=== PATIENT | male | born 1945 ===

== ENCOUNTER 2017-12-18 10:05 | Inpatient (IN) | payer MEDICARE ==
[2017-12-18] MEDS ORDERED: Magnesium Hydroxide LIQ* 30 ML UDC PO PRN (12:48)
[2017-12-18] MEDS ORDERED: Senna TAB PO PRN (12:48)
[2017-12-18] MEDS ORDERED: Acetaminophen TAB* 325 MG PO PRN (12:48)
[2017-12-18] MEDS: Atorvastatin* 80 MG TAB PO SCH (16:26)
[2017-12-18] MEDS: oxyCODONE/Acetamin 5/325 MG* TAB PO PRN ×2 (16:39→21:41)
[2017-12-18] MEDS ORDERED: traMADol TAB* 50 MG PO PRN (16:51)
[2017-12-18] MEDS: Enoxaparin(*) 30 MG/0.3 ML SYR SUBCUT SCH (20:13)
[2017-12-18] MEDS: Docusate CAP* 100 MG PO SCH (20:14)
--- NOTE | 2017-12-18 21:23 | HP ---
HISTORY AND PHYSICAL: DATE OF ADMISSION: 12/18/17 REASON FOR ADMISSION: Stroke with left hemiparesis; left total hip replacement. HISTORY OF PRESENT ILLNESS: Abebe Dow is a 72-year-old male. He has a medical history significant for having had TIAs in the past. The patient had worsening chronic left hip pain. He had seen Dr. Jenaro Lane at [place]. X- rays were taken showing end-stage osteoarthritis. Conservative measures including intraarticular injections and physical therapy failed to provide any significant relief. It was decided the best big course of action would be for the patient to have a left total hip replacement. The patient normally takes a baby aspirin a day, but this was held for 2 weeks prior to surgery. The patient was admitted to [facility] on 12/11/17. He underwent a total hip replacement that day. Apparently, the patient started to have stroke- like symptoms on 12/08/17. The patient did not report this to anybody because he was worried that his surgery might get canceled. The patient was having difficulty gripping a pen with his left hand and he had weakness in his left arm and left leg. The patient reported to nursing staff that he was having more difficulty moving his left leg and left hip after the surgery. A Neurology consult was ordered on 12/12/17. The patient had an MRI of his brain , which showed acute ischemic changes throughout the right hemisphere including the right parietal cortex in the region of the hand representation. There were other scattered ischemic foci within the subcortical white matter. MR angiogram revealed focal right internal carotid artery stenosis. The patient's baby aspirin by that time had been restarted. He was also on Lovenox for DVT prophylaxis. Vascular Surgery was called to see the patient. They said they would follow up in several weeks to determine if he was a candidate for any vascular procedures. They recommended continuing aspirin in the meantime. The patient was seen by Physical Therapy and Occupational Therapy at [facility]. He was felt to have needs in both disciplines. He is now being admitted for inpatient rehab so he might return to independent living. PAST MEDICAL HISTORY: Significant for the aforementioned TIAs in the past. He also has a history of polymyalgia rheumatica. He was given steroids for that and had significant weight gain. CURRENT MEDICATIONS: Include: 1. Aspirin 81 mg daily. 2. He is on Lipitor 80 mg daily. 3. He is on Lovenox. 4. Percocet for pain control. ALLERGIES: The patient has no known allergies. SOCIAL HISTORY: He is a nonsmoker. He does drink once in a while. He lives with his and daughter in a trailer with 4 steps to enter. REVIEW OF SYSTEMS: The patient reports no current shortness of breath or chest pain. PHYSICAL EXAMINATION VITAL SIGNS: The patient's temperature is 97.1, blood pressure is 121/67, pulse is 87, respirations 20. HEENT: His extraocular movements appear to be intact. His face is symmetric. NECK: Supple with no lymphadenopathy. LUNGS: Sounded clear to auscultation bilaterally. HEART: Sounds are regular. S1, S2 are audible. ABDOMEN: Soft and nontender. EXTREMITIES: His left hip has a wound, which is clean and dry. Peripheral pulses were intact. NEUROLOGIC: He was awake, alert, oriented. He did seem to have weakness in his left hand as well as left wrist. He also had possible weakness in his left leg, difficult to tell with his recent total hip replacement. 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 PLAN: Integrate to him to comprehensive and therapeutic rehab program with the following goals. 1. Physical Therapy will work with the patient. They are going to work on functional transfer training, ambulation training with a walker. 2. Occupational Therapy will see the patient and work on his activities of daily living including toileting and toilet transfers. 3. Lovenox for DVT prophylaxis. 4. Aspirin and Lipitor for secondary stroke prevention. 5. SSRIs including Prozac as indicated. 6. Adequate analgesia. 7. His bowels will be regulated. 8. guest services will be closely involved to make sure that any service and equipment that the patient requires are in place prior to discharge. 9. Family training as appropriate. 10. Home with appropriate services. ESTIMATED LENGTH OF STAY: 10 to 12 days. [id number]/[facility] #: [id number] JOSELITO
[2017-12-19] MEDS: Enoxaparin(*) 30 MG/0.3 ML SYR SUBCUT SCH ×2 (07:31→19:59)
[2017-12-19] MEDS: oxyCODONE/Acetamin 5/325 MG* TAB PO PRN ×4 (07:31→23:57)
[2017-12-19] MEDS: Aspirin EC Low Dose* 81 MG TAB.EC PO SCH (07:31)
[2017-12-19] MEDS: Docusate CAP* 100 MG PO SCH ×2 (07:31→20:02)
--- NOTE | 2017-12-19 12:29 | PMRUTEAM ---
PMRU: Goals Current Status: Nursing: Current Status Skin Deviations [Left Hip] Incision Skin Deviation Description [ Dressing not to be removed till 12/21 Left Hip] Physical Therapy: Current Status Bed Mobility Assistance Supervision Transfer Moblility Assistance Supervision Transfer/Bed Mobility Rolling Walker Recommended Devices Transfer Mobility Comment Pt. is able to perform a transfer using a 2 w/w. Ambulation Assistance Supervision Ambulation Assistive Devices Rolling Walker Number of Feet Patient 150' Ambulated Ambulation Comment pt. presents an antalgic slow reciprocal type gait pattern. Stairs Assistance Supervision Stairs Recommended Devices Two Rails Number of Stairs Flight Occupational Therapy: Current Status Upper Body Dressing Supervision Lower Body Dressing Min Assist Bathing Min Assist Toileting Contact Guard Assist Toilet Transfer Contact Guard Assist Shower Transfer Contact Guard Assist Eating Ind with Adaptive Equip Rec Therapy: Current Status Summary of Assessment and RT assessment complete and pt. is aware of RT Clinical Impression services. Pt. identifies with leisure interests and was actively involved in them prior to admission. Pt. is open to continued leisure visits. Treatment Goals Pt. will engage in leisure activities while on the unit. Treatment Plan Provide RT services and encourage involvement. Social Work: Current Status Discharge Plan return home with home care svs and family support Potential for Family Training pt's is involved and supportive Anticipated Discharge Home Destination Discharge With VNS and family support Nutrition: Current Status Monitoring Pt newly admitted 12/18 post R CVA w/L sided weakness, L THR. No swallowing difficulties noted , tolerating regular textures. Heart healthy diet appropriate. Note fair intake (45-50%) and will follow to encourage improvement. No skin issues, + BM 12/18 and receiving appropriate bowel meds. Goals: Physical Therapy: Initial Goals Bed Mobility Assistance Independent Transfer Mobility Assistance Independent Transfer/Bed Mobility Rolling Walker Recommended Devices Ambulation Independent Ambulation Recommended Devices Rolling Walker Ambulation Distance 150' Stairs Assistance Independent Stair Recommended Devices Two Rails Number of Stairs 12 Home Exercise Program Independent Assistance Physical Therapy: Updated Goals Bed Mobility Assistance Independent Transfer Mobility Assistance Independent Transfer/Bed Mobility Rolling Walker Recommended Devices Ambulation Assistance Independent Ambulation Assistive Devices Rolling Walker Ambulation Distance (ft) 150 Stairs Assistance Independent Stairs Recommended Devices Two Rails Number of Stairs flight Home Exercise Program Independent Assistance Occupational Therapy: Initial Goals Goals to be Completed in (Days 5 days ) Upper Body Bathing Routine Modified Independent with Lower Body Bathing Routine Modified Independent with Upper Body Dressing Routine Independent Lower Body Dressing Routine Modified Independent with Toilet Hygeine and Clothing Modified Independent with Management Routine Toilet Transfer Routine Modified Independent with Step-In Shower Transfer Modified Independent with Routine Functional Transfers for ADL Modified Independent with Grooming Routine Independent Feeding Routine Independent Nutrition: Goals Intervention Goals 1. Adequate oral intake to support maintenance of lean body mass w/o contributing to undesirable weight gain. 2. Maintain bowel regularity w/o constipation/ diarrhea. Social Work: Goals Discharge Plan return home with home care svs and family support Potential for Family Training pt's is involved and supportive Anticipated Discharge Home Destination Discharge With VNS and family support Care Plan: Care Plan Mobility- Improve/Maintain Start: 12/18/17 14:50 Freq: DAILY Status: Active Target: Protocol: Activity Type Activity Date Activity User E-Sign Co-Sign Detail Recorded Client Recorded Date Recorded By Document 12/18/17 14:50 [id number] 12/18/17 14:51 [id number] 12/18/17 14:50 PMRU Outcome: Mobility Physical Therapy Evaluation and Yes Treatment Activity OOB with Assistance Yes WBAT Yes Device Yes Assistance Yes Patient to be seen 5x/wk for 60-120 min/ Therex day for: Mobility Training Gait Training Balance Other Therapy Comment L hip precautions Outcome/Goals Maintain/ Achieve Baseline Mobility Status Improve Mobility Status Demonstrates Proper Use of Assistive Devices Free from Complications of Immobility Bed Mobility Yes: Independent Transfers Yes: Modified independent with RW Gait x ft Yes: Modified independent 150 ' with RW Up/Down Stairs Yes: Independent 12 steps 2 railings With HEP Yes Goal Comment Recall 3/3 hip precautions independently Neurological- Improve/Maintain Start: 12/18/17 17:00 Freq: DAILY Status: Active Target: Protocol: Activity Type Activity Date Activity User E-Sign Co-Sign Detail Recorded Client Recorded Date Recorded By Document 12/18/17 23:50 [id number] 12/18/17 23:50 [id number] 12/18/17 23:50 PMRU Outcome: Neurological Weakness/Aphasia Weakness Weakness/Aphasia Comment general Outcome/Goals Maintain/ Achieve Baseline Neurological Status Improve Neurological Status Maintain/ Improve Strength/ROM Progression Toward Outcome/Goals Progressing Pain/Comfort- Improve/Maintain Start: 12/18/17 17:00 Freq: DAILY Status: Active Target: Protocol: Activity Type Activity Date Activity User E-Sign Co-Sign Detail Recorded Client Recorded Date Recorded By Document 12/18/17 23:50 [id number] 12/18/17 23:50 [id number] 12/18/17 23:50 PMRU Outcome: Pain/Comfort Outcome/Goals Demonstrates Knowledge and Use of Available Comfort Measures Maintain Comfort Level Allowing Patient to Fully Participate in Rehab Progression Toward Outcome/Goals Progressing Outcome/Goals Met Comment pt sleeping Safety- Improve/Maintain Start: 12/18/17 17:00 Freq: DAILY Status: Active Target: Protocol: Activity Type Activity Date Activity User E-Sign Co-Sign Detail Recorded Client Recorded Date Recorded By Document 12/18/17 23:50 [id number] 12/18/17 23:50 [id number] 12/18/17 23:50 PMRU Outcome: Safety Outcome/Goals Remain Free of Injury or Harm Outcome/Goals Met Comment PA in place Medicine Note: Length of Stay: 3 days Anticipated Discharge Destination: Home Tentative Discharge Date: 12/22/17 Discharged to: Home
[2017-12-19] MEDS: Atorvastatin* 80 MG TAB PO SCH (16:58)
--- NOTE | 2017-12-19 18:05 | PN ---
Progress Note Date of Service: 12/19/17 Note: PARAS López RAMON was visited. Therapy notes read and reviewed. Jose was discussed in interdisciplinary team rounds. Doing quite well. Will need outpatient OT and PT after d/c. Will try to reach Dr. Lane to see if ok to get in and out of car twice a week. Current Medications: Active Medications Generic Name Dose Route Start Last Admin Trade Name Freq PRN Reason Stop Dose Admin Acetaminophen 650 mg 12/18/17 12:48 Tylenol Tab* PO Q6H PRN FEVER/PAIN Aspirin 81 mg 12/19/17 09:00 12/19/17 07:31 Aspirin Ec Low Dose* PO 81 mg DAILY ELIAN Administration Atorvastatin Calcium 80 mg 12/18/17 17:00 12/19/17 16:58 Lipitor* PO 80 mg 1700 ELIAN Administration Docusate Sodium 100 mg 12/18/17 21:00 12/19/17 07:31 Colace Cap* PO 100 mg BID ELIAN Administration Enoxaparin Sodium 30 mg 12/18/17 21:00 12/19/17 07:31 Lovenox(*) SUBCUT 30 mg BID ELIAN Administration Magnesium Hydroxide 30 ml 12/18/17 12:48 Milk Of Magnesia Liq* PO Q6H PRN CONSTIPATION Oxycodone/Acetaminophen 1 tab 12/18/17 12:54 12/18/17 16:39 Percocet 5/325 Tab* PO 1 tab Q4H PRN Administration PAIN - MODERATE TO SEVERE Oxycodone/Acetaminophen 2 tab 12/18/17 12:55 12/19/17 13:19 Percocet 5/325 Tab* PO 2 tab Q4H PRN Administration PAIN - SEVERE Senna 2 tab 12/18/17 12:48 Senokot Tab* PO BEDTIME PRN CONSTIPATION Tramadol HCl 50 mg 12/18/17 16:51 12/18/17 20:14 Ultram* PO 50 mg Q6H PRN Administration PAIN - MODERATE Vital Signs: Vital Signs Temp Pulse Resp BP Pulse Ox 99.8 F 94 18 118/58 94 12/19/17 15:39 12/19/17 15:39 12/19/17 15:44 12/19/17 15:39 12/19/17 15:39 Exam: LUNGS: Clear bilaterally HEART: reg rhythm ABDOMEN: Soft, +BS EXTREMITIES: Wound LLE clean NEUROLOGIC: Alert, oriented, some left hand weakness, left arm weakness Assessment/Plan: 1. Right CVA with left hemiparesis: ASA/Lipitor. PT/OT 2. Left Total Hip Arthroplasty: PT/OT 3. DVT Prophylaxis: Lovenox BID 4. Analgesia: Percocet 5. Post-discharge Therapy: will check with Dr. Lane to see if outpatient acceptable 12/19/17 18:03
[2017-12-20] MEDS: Docusate CAP* 100 MG PO SCH ×2 (08:02→19:58)
[2017-12-20] MEDS: Aspirin EC Low Dose* 81 MG TAB.EC PO SCH (08:02)
[2017-12-20] MEDS: oxyCODONE/Acetamin 5/325 MG* TAB PO PRN ×2 (08:02→15:46)
[2017-12-20] MEDS: Enoxaparin(*) 30 MG/0.3 ML SYR SUBCUT SCH ×2 (08:13→19:59)
[2017-12-20 09:40] LABS: ABS Basophils 0 10^3/ul (0-0.2); ABS Eosinophils 0.1 10^3/ul (0-0.6); ABS Lymphocytes 1.8 10^3/ul (1.0-4.8); ABS Monocytes 1.1 10^3/ul (0-0.8); ABS Neutrophils 8.5 10^3/ul (1.5-7.7); ABS Nucleated RBC 0 10^3/ul; Hematocrit 33 % (42-52); Lymphocyte % 15.8 % (25-47); Mean Corpuscular HGB Conc 33 g/dl (31-36); Mean Corpuscular Hemoglobin 27 pg (27-31); Mean Corpuscular Volume 82 fL (80-94); Mean Platelet Volume 6 um3 (7.4-10.4); Nucleated Red Blood Cells % 0; Platelet Count 528 10^3/ul (150-450); Red Blood Count 4.04 10^6/ul (4.0-5.4); Red Cell Distribution Width 16 % (10.5-15); White Blood Count 11.6 10^3/ul (3.5-10.8)
[2017-12-20 09:53] LABS: EGFR Non-African American 90.3 (>60)
[2017-12-20] MEDS: Atorvastatin* 80 MG TAB PO SCH (17:27)
--- NOTE | 2017-12-20 20:01 | PN ---
Progress Note Date of Service: 12/20/17 Note: PARAS NAVARRO was visited. Therapy notes read and reviewed. He feels like he is doing well. The nurse felt his HR was irregular (but slow) earlier but did not call me. Will check EKG in am. May need Holter as outpatient. Labs show slightly elevated transaminases. Slightly high WBC. His WBC was consistently above 11 at [facility]. Current Medications: Active Medications Generic Name Dose Route Start Last Admin Trade Name Freq PRN Reason Stop Dose Admin Acetaminophen 650 mg 12/18/17 12:48 Tylenol Tab* PO Q6H PRN FEVER/PAIN Aspirin 81 mg 12/19/17 09:00 12/20/17 08:02 Aspirin Ec Low Dose* PO 81 mg DAILY ELIAN Administration Atorvastatin Calcium 80 mg 12/18/17 17:00 12/20/17 17:27 Lipitor* PO 80 mg 1700 ELIAN Administration Docusate Sodium 100 mg 12/18/17 21:00 12/20/17 08:02 Colace Cap* PO 100 mg BID ELIAN Administration Enoxaparin Sodium 30 mg 12/18/17 21:00 12/20/17 08:13 Lovenox(*) SUBCUT 30 mg BID ELIAN Administration Magnesium Hydroxide 30 ml 12/18/17 12:48 Milk Of Magnesia Liq* PO Q6H PRN CONSTIPATION Oxycodone/Acetaminophen 1 tab 12/18/17 12:54 12/19/17 23:57 Percocet 5/325 Tab* PO 1 tab Q4H PRN Administration PAIN - MODERATE TO SEVERE Oxycodone/Acetaminophen 2 tab 12/18/17 12:55 12/20/17 15:46 Percocet 5/325 Tab* PO 2 tab Q4H PRN Administration PAIN - SEVERE Senna 2 tab 12/18/17 12:48 Senokot Tab* PO BEDTIME PRN CONSTIPATION Tramadol HCl 50 mg 12/18/17 16:51 12/18/17 20:14 Ultram* PO 50 mg Q6H PRN Administration PAIN - MODERATE Vital Signs: Vital Signs Temp Pulse Resp BP Pulse Ox 98.5 F 89 18 123/56 100 12/20/17 16:19 12/20/17 16:19 12/20/17 19:17 12/20/17 16:19 12/20/17 16:19 Lab Results: Laboratory Results - last 24 hr 12/20/17 12/20/17 09:21 09:21 WBC 11.6 H RBC 4.04 Hgb 11.0 L Hct 33 L MCV 82 MCH 27 MCHC 33 RDW 16 H Plt Count 528 H MPV 6 L Neut % (Auto) 73.2 Lymph % (Auto) 15.8 L Surry % (Auto) 9.6 H Eos % (Auto) 1.0 Baso % (Auto) 0.4 Absolute Neuts (auto) 8.5 H Absolute Lymphs (auto) 1.8 Absolute Monos (auto) 1.1 H Absolute Eos (auto) 0.1 Absolute Basos (auto) 0 Absolute Nucleated RBC 0 Nucleated RBC % 0 Sodium 129 L Potassium 3.8 Chloride 97 L Carbon Dioxide 25 Anion Gap 7 BUN 14 Creatinine 0.84 Est GFR ( Amer) 116.2 Est GFR (Non-Af Amer) 90.3 BUN/Creatinine Ratio 16.7 Glucose 117 H Calcium 8.9 Total Bilirubin 0.70 AST 41 H ALT 80 H Alkaline Phosphatase 129 H Total Protein 6.9 Albumin 3.1 L Globulin 3.8 Albumin/Globulin Ratio 0.8 L Exam: LUNGS: Clear bilaterally HEART: reg rhythm ABDOMEN: Soft, +BS EXTREMITIES: Wound LLE clean NEUROLOGIC: Alert, oriented, some left hand weakness, left arm weakness Assessment/Plan: 1. Right CVA with left hemiparesis: ASA/Lipitor. PT/OT 2. Left Total Hip Arthroplasty: PT/OT 3. DVT Prophylaxis: Lovenox BID 4. Analgesia: Percocet 5. Post-discharge Therapy: will check with Dr. Lane to see if outpatient acceptable 6. Cardiac: will check EKG in am. Pulse regular now 12/20/17 20:02
[2017-12-21] MEDS: oxyCODONE/Acetamin 5/325 MG* TAB PO PRN ×2 (01:42→07:37)
[2017-12-21 04:33] VITALS: BP 121/54
[2017-12-21] MEDS: Aspirin EC Low Dose* 81 MG TAB.EC PO SCH (07:37)
[2017-12-21] MEDS: Docusate CAP* 100 MG PO SCH (07:37)
[2017-12-21] MEDS: Enoxaparin(*) 30 MG/0.3 ML SYR SUBCUT SCH (07:38)
--- NOTE | 2017-12-22 15:29 | DS ---
CC: Dr. Pancho Heck* DISCHARGE SUMMARY: DATE OF ADMISSION: 12/18/17 DATE OF DISCHARGE: 12/21/17 DISCHARGE DIAGNOSES: 1. Left total hip replacement. 2. Right cerebrovascular accident with left hemiparesis. 3. History of transient ischemic attacks. HISTORY OF ILLNESS AND HOSPITAL COURSE: For complete history of the events leading up to his rehab stay, please see the history and physical dictated by me on 12/18/17. While on the rehab unit, the patient was medically stable. He was maintained on Lovenox for DVT prophylaxis. He otherwise had no complaints while on the rehab unit. The patient was seen by Physical and Occupational Therapy and made good gains with both disciplines. With physical therapy at the time of admission, the patient required contact guard to transfer. He was able to ambulate with contact guard and a rolling walker with Occupational Therapy at the time of admission. The patient required supervision for upper body dressing, min assist for lower body dressing, contact guard for toileting, contact guard for toilet transfers. By the time of discharge, the patient was independent in transfers, independent ambulating, independent going up and down and flight of stairs, independent with his ADLs, independent toileting and independent toilet transfers. He was discharged home on 12/21/17. DISCHARGE DIET: Regular. DISCHARGE MEDICATIONS: 1. Aspirin 81 mg daily. 2. Lipitor 80 mg daily. 3. Lovenox 30 mg subcutaneously twice a day for 8 days. 4. Percocet 1 to 2 tablets every 4 hours as needed. SERVICES AFTER DISCHARGE: The patient will have outpatient Physical Therapy and Occupational Therapy at [facility] and OT. He will also follow up with Dr. Jenaro Lane on 01/05/18 and he will follow up with the vascular surgeon, Dr. Santana at [place] on 12/26/17. [id number]/[facility] #: [id number] JOSELITO
== END 2017-12-21 14:30 | disposition home or self-care (01) | DRG 560 ==
LOC: PMRU 12:14
PROVIDERS: ADMIT Physical Medicine & Rehabilitation; ATTEND Physical Medicine & Rehabilitation
PROC: F07Z5ZZ Bed Mobility Treatment (ICD-10-PCS; principal; 2017-12-18)
PROC: F07Z9ZZ Gait Training/Functional Ambulation Treatment (ICD-10-PCS; 2017-12-18)
PROC: F07Z8ZZ Transfer Training Treatment (ICD-10-PCS; 2017-12-18)
PROC: F08Z0ZZ Bathing/Showering Techniques Treatment (ICD-10-PCS; 2017-12-18)
PROC: F08Z1ZZ Dressing Techniques Treatment (ICD-10-PCS; 2017-12-18)
PROC: F08Z3ZZ Feeding/Eating Treatment (ICD-10-PCS; 2017-12-18)
DX: Z47.1 Aftercare following joint replacement surgery (principal); I69.354 Hemiplegia and hemiparesis following cerebral infarction affecting left non-dominant side; I65.21 Occlusion and stenosis of right carotid artery; Z96.642 Presence of left artificial hip joint; M35.3 Polymyalgia rheumatica; Z79.82 Long term (current) use of aspirin; Z79.899 Other long term (current) drug therapy
CPT/HCPCS: 36415; 80053; 85025; 93005; A9270-GY; J1650

== ENCOUNTER 2021-02-03 06:59 | Inpatient (IN) ==
[2021-02-03 07:47] LABS: Hematocrit 38 % (42-52); Hemoglobin 12.8 g/dL (14.0-18.0); Mean Corpuscular HGB Conc 34 g/dL (31-36); Mean Corpuscular Hemoglobin 28 pg (27-31); Mean Corpuscular Volume 85 fL (80-94); Red Blood Count 4.51 10^6 /uL (4.18-5.48); Red Cell Distribution Width 16 % (10-15); White Blood Count 13.8 10^3/uL (3.5-10.8)
[2021-02-03 07:50] LABS: ALT 27 U/L (7-52); Albumin 3.3 g/dL (3.2-5.2); Albumin/Globulin Ratio 0.9 (1-3); Alkaline Phosphatase 124 U/L (34-104); BUN/Creatinine Ratio 29.6 (8-20); Blood Urea Nitrogen 32 mg/dL (6-24); CO2 Carbon Dioxide 23 mmol/L (22-32); Calcium 8.7 mg/dL (8.6-10.3); Chloride 106 mmol/L (101-111); EGFR African American 81.1 (>60); Globulin 3.8 g/dL (2-4); Glucose 139 mg/dL (70-100); Sodium 140 mmol/L (135-145); Total Protein 7.1 g/dL (6.4-8.9)
[2021-02-03 07:53] LABS: Troponin I 0.03 ng/mL (<0.03)
[2021-02-03 08:02] LABS: Anion Gap 11 mmol/L (2-11)
[2021-02-03 08:08] LABS: Influenza A Molecular Negative (Negative); Influenza B Molecular Negative (Negative)
[2021-02-03 08:09] LABS: ABS Basophils 0.1 10^3/ul (0-0.2); ABS Lymphocytes 0.8 10^3/ul (1.0-4.8); ABS Monocytes 0.9 10^3/ul (0-0.8); Lymphocyte % 6.1 %; Mean Platelet Volume 7.6 fL (7.4-10.4); Platelet Count 397 10^3/uL (150-450)
[2021-02-03 08:38] LABS: Potassium Redraw 4.2 mmol/L (3.5-5.0)
[2021-02-03] MEDS ORDERED: Tocilizumab 200 MG/10 ML 10 ml VIAL IVPB ONE (09:21)
[2021-02-03] MEDS ORDERED: Remdesivir 100 mg Vial 200 MG in NS 0.9% 250 ml 210 ML IV ONE (10:00)
[2021-02-03 10:23] LABS: C Reactive Protein 259.38 mg/L (<8.01)
[2021-02-03] MEDS ORDERED: cefTRIAXone 1 gm/50 mL NS BAG 1 GM/50 ML BAG IVPB SCH (12:30)
[2021-02-03 12:35] LABS: INR 1.36 (0.82-1.09)
[2021-02-03 12:44] LABS: Troponin I 0.03 ng/mL (<0.03)
[2021-02-03] MEDS ORDERED: Azithromycin 500 mg/250 ml NS 500 MG/250 ML BAG IVPB SCH (13:00)
[2021-02-03] MEDS: Pantoprazole VIAL 40 MG VIAL IV SCH (14:51)
[2021-02-03] MEDS ORDERED: Tocilizumab 800 MG in NS 0.9% 100 ml BAG 60 ML IVPB ONE (15:00)
[2021-02-03] MEDS: cefTRIAXone 1 gm/50 mL NS BAG 1 GM/50 ML BAG IVPB SCH (15:41)
[2021-02-03] MEDS: Azithromycin 500 mg/250 ml NS 500 MG/250 ML BAG IVPB SCH (16:44)
[2021-02-03] MEDS ORDERED: D5LR 1000 ml BAG 1,000 ML IV SCH (19:00)
[2021-02-03] MEDS: methylPREDNISolone SOD 40 mg/ml 1 ml VIAL IV SCH (20:10)
[2021-02-03] MEDS: Enoxaparin 60 MG/0.6 ML SYR SUBCUT SCH (20:10)
[2021-02-04] MEDS: methylPREDNISolone SOD 40 mg/ml 1 ml VIAL IV SCH ×3 (04:37→22:56)
[2021-02-04 05:17] LABS: ABS Lymphocytes 0.7 10^3/ul (1.0-4.8); ABS Monocytes 0.3 10^3/ul (0-0.8); ABS Neutrophils 6.5 10^3/ul (1.5-7.7); Hematocrit 34 % (42-52); Hemoglobin 11.5 g/dL (14.0-18.0); Lymphocyte % 8.8 %; Mean Corpuscular HGB Conc 34 g/dL (31-36); Mean Corpuscular Hemoglobin 28 pg (27-31); Mean Corpuscular Volume 83 fL (80-94); Mean Platelet Volume 7.1 fL (7.4-10.4); Nucleated Red Blood Cells % 0.1; Platelet Count 373 10^3/uL (150-450); Red Blood Count 4.05 10^6 /uL (4.18-5.48); Red Cell Distribution Width 16 % (10-15); White Blood Count 7.5 10^3/uL (3.5-10.8)
[2021-02-04 05:23] LABS: INR 1.37 (0.82-1.09)
[2021-02-04 05:37] LABS: Albumin 2.9 g/dL (3.2-5.2); Albumin/Globulin Ratio 0.9 (1-3); BUN/Creatinine Ratio 34.6 (8-20); Calcium 8.1 mg/dL (8.6-10.3); EGFR Non-African American 93.4 (>60); Globulin 3.2 g/dL (2-4); Potassium 3.9 mmol/L (3.5-5.0); Total Bilirubin 1.1 mg/dL (0.2-1.0); Total Protein 6.1 g/dL (6.4-8.9)
[2021-02-04] MEDS: Enoxaparin 60 MG/0.6 ML SYR SUBCUT SCH ×2 (07:54→22:56)
[2021-02-04] MEDS: Pantoprazole VIAL 40 MG VIAL IV SCH (07:55)
[2021-02-04] MEDS: Remdesivir 100 mg Vial 100 MG in NS 0.9% 250 ml 230 ML IV SCH (08:02)
[2021-02-04] MEDS: cefTRIAXone 1 gm/50 mL NS BAG 1 GM/50 ML BAG IVPB SCH (16:44)
[2021-02-04] MEDS: Azithromycin 500 mg/250 ml NS 500 MG/250 ML BAG IVPB SCH (17:46)
[2021-02-05] MEDS: methylPREDNISolone SOD 40 mg/ml 1 ml VIAL IV SCH (04:15)
[2021-02-05 05:22] LABS: INR 1.42 (0.82-1.09)
[2021-02-05 05:28] LABS: Albumin 2.9 g/dL (3.2-5.2); BUN/Creatinine Ratio 33.7 (8-20); Calcium 8.2 mg/dL (8.6-10.3); EGFR African American 109.9 (>60); EGFR Non-African American 90.8 (>60); Potassium 3.6 mmol/L (3.5-5.0); Total Bilirubin 0.7 mg/dL (0.2-1.0); Total Protein 5.9 g/dL (6.4-8.9)
[2021-02-05] MEDS: Enoxaparin 60 MG/0.6 ML SYR SUBCUT SCH ×2 (09:52→20:05)
[2021-02-05] MEDS: Remdesivir 100 mg Vial 100 MG in NS 0.9% 250 ml 230 ML IV SCH (10:07)
[2021-02-05 11:07] LABS: ABS Lymphocytes 0.8 10^3/ul (1.0-4.8); ABS Neutrophils 11.5 10^3/ul (1.5-7.7); Hematocrit 35 % (42-52); Hemoglobin 11.7 g/dL (14.0-18.0); Lymphocyte % 6.1 %; Mean Corpuscular HGB Conc 33 g/dL (31-36); Mean Corpuscular Hemoglobin 28 pg (27-31); Mean Corpuscular Volume 85 fL (80-94); Mean Platelet Volume 7.5 fL (7.4-10.4); Platelet Count 474 10^3/uL (150-450); Red Blood Count 4.18 10^6 /uL (4.18-5.48); Red Cell Distribution Width 17 % (10-15); White Blood Count 13.3 10^3/uL (3.5-10.8)
[2021-02-05] MEDS ORDERED: methylPREDNISolone SOD 40 mg/ml 1 ml VIAL IV SCH (16:00)
[2021-02-05] MEDS: cefTRIAXone 1 gm/50 mL NS BAG 1 GM/50 ML BAG IVPB SCH (16:25)
[2021-02-05] MEDS: Azithromycin 500 mg/250 ml NS 500 MG/250 ML BAG IVPB SCH (17:09)
[2021-02-06 06:27] LABS: Hematocrit 35 % (42-52); Hemoglobin 11.7 g/dL (14.0-18.0); Mean Corpuscular HGB Conc 34 g/dL (31-36); Mean Corpuscular Hemoglobin 28 pg (27-31); Mean Corpuscular Volume 83 fL (80-94); Mean Platelet Volume 7.2 fL (7.4-10.4); Platelet Count 486 10^3/uL (150-450); Red Blood Count 4.15 10^6 /uL (4.18-5.48); Red Cell Distribution Width 17 % (10-15); White Blood Count 12.3 10^3/uL (3.5-10.8)
[2021-02-06 06:42] LABS: INR 1.42 (0.82-1.09)
[2021-02-06 06:50] LABS: Albumin 2.9 g/dL (3.2-5.2); Albumin/Globulin Ratio 0.9 (1-3); BUN/Creatinine Ratio 30.7 (8-20); Calcium 8.2 mg/dL (8.6-10.3); EGFR African American 102.7 (>60); EGFR Non-African American 84.9 (>60); Globulin 3.1 g/dL (2-4); Potassium 3.9 mmol/L (3.5-5.0); Total Bilirubin 0.8 mg/dL (0.2-1.0)
[2021-02-06 07:54] LABS: ABS Monocytes 1.3 10^3/ul (0-0.8); Lymphocyte % 8.2 %
[2021-02-06] MEDS ORDERED: methylPREDNISolone SOD 40 mg/ml 1 ml VIAL IV ONE ×2 (09:00→13:37)
[2021-02-06] MEDS: Enoxaparin 60 MG/0.6 ML SYR SUBCUT SCH (09:35)
[2021-02-06] MEDS: Remdesivir 100 mg Vial 100 MG in NS 0.9% 250 ml 230 ML IV SCH (09:35)
[2021-02-06] MEDS: Enoxaparin 40 MG/0.4 ML SYR SUBCUT SCH (09:53)
[2021-02-06] MEDS: cefTRIAXone 1 gm/50 mL NS BAG 1 GM/50 ML BAG IVPB SCH (15:41)
[2021-02-06] MEDS: SPIRIVA Respimat (tiotropium) 2.5 mcg/inh Inhaler INH SCH (15:51)
[2021-02-06] MEDS: methylPREDNISolone SOD 40 mg/ml 1 ml VIAL IV SCH (21:31)
[2021-02-07 07:04] LABS: Albumin 2.9 g/dL (3.2-5.2); BUN/Creatinine Ratio 33.3 (8-20); Calcium 8.2 mg/dL (8.6-10.3); EGFR African American 118.1 (>60); EGFR Non-African American 97.6 (>60); Globulin 2.8 g/dL (2-4); Potassium 4.2 mmol/L (3.5-5.0); Total Bilirubin 0.7 mg/dL (0.2-1.0); Total Protein 5.7 g/dL (6.4-8.9)
[2021-02-07 07:26] LABS: INR 1.43 (0.82-1.09)
[2021-02-07] MEDS: SPIRIVA Respimat (tiotropium) 2.5 mcg/inh Inhaler INH SCH (07:49)
[2021-02-07] MEDS: methylPREDNISolone SOD 40 mg/ml 1 ml VIAL IV SCH ×4 (08:12→21:29)
[2021-02-07] MEDS: Enoxaparin 40 MG/0.4 ML SYR SUBCUT SCH (12:11)
[2021-02-07] MEDS ORDERED: Furosemide 20 mg/2 ml IV VIAL IV ONE (12:24)
[2021-02-07] MEDS: cefTRIAXone 1 gm/50 mL NS BAG 1 GM/50 ML BAG IVPB SCH (17:17)
[2021-02-08 05:55] LABS: Hematocrit 39 % (42-52); Hemoglobin 12.7 g/dL (14.0-18.0); Mean Corpuscular HGB Conc 33 g/dL (31-36); Mean Corpuscular Hemoglobin 27 pg (27-31); Mean Corpuscular Volume 84 fL (80-94); Mean Platelet Volume 7.2 fL (7.4-10.4); Platelet Count 486 10^3/uL (150-450); Red Blood Count 4.63 10^6 /uL (4.18-5.48); Red Cell Distribution Width 16 % (10-15); White Blood Count 16.1 10^3/uL (3.5-10.8)
[2021-02-08 06:03] LABS: INR 1.29 (0.82-1.09)
[2021-02-08 06:15] LABS: Albumin 2.9 g/dL (3.2-5.2); Albumin/Globulin Ratio 1.1 (1-3); BUN/Creatinine Ratio 35.7 (8-20); Calcium 8.4 mg/dL (8.6-10.3); EGFR African American 108.4 (>60); EGFR Non-African American 89.6 (>60); Globulin 2.7 g/dL (2-4); Potassium 4.1 mmol/L (3.5-5.0); Total Bilirubin 0.6 mg/dL (0.2-1.0); Total Protein 5.6 g/dL (6.4-8.9)
[2021-02-08 07:10] LABS: ABS Lymphocytes 1.2 10^3/ul (1.0-4.8); ABS Neutrophils 13.8 10^3/ul (1.5-7.7); Lymphocyte % 7.8 %; Nucleated Red Blood Cells % 0.1
[2021-02-08] MEDS: methylPREDNISolone SOD 40 mg/ml 1 ml VIAL IV SCH ×2 (08:13→21:31)
[2021-02-08] MEDS: Enoxaparin 40 MG/0.4 ML SYR SUBCUT SCH (08:13)
[2021-02-08] MEDS: SPIRIVA Respimat (tiotropium) 2.5 mcg/inh Inhaler INH SCH (08:38)
[2021-02-08] MEDS: cefTRIAXone 1 gm/50 mL NS BAG 1 GM/50 ML BAG IVPB SCH (17:48)
[2021-02-09] MEDS: SPIRIVA Respimat (tiotropium) 2.5 mcg/inh Inhaler INH SCH (07:57)
[2021-02-09] MEDS: Enoxaparin 40 MG/0.4 ML SYR SUBCUT SCH (08:30)
[2021-02-09] MEDS: methylPREDNISolone SOD 40 mg/ml 1 ml VIAL IV SCH (08:30)
[2021-02-10] MEDS: SPIRIVA Respimat (tiotropium) 2.5 mcg/inh Inhaler INH SCH (07:36)
[2021-02-10] MEDS ORDERED: Enoxaparin 40 MG/0.4 ML SYR SUBCUT SCH (09:00)
[2021-02-10 16:39] VITALS: BP 124/64
== END 2021-02-10 17:30 | disposition home or self-care (01) | DRG 177 ==
LOC: ED 06:59 → ICU 09:09 → MED 02-04 11:02
PROVIDERS: ADMIT Internal Medicine; ATTEND Hospitalist